=== PATIENT | male | born 1995 | race Two or more races ===

== ENCOUNTER 2017-03-04 17:01 | Emergency (ER) | payer BC, MEDICAID ==
[~2017-03-04] VITALS: Ht 185.4 cm; Wt 113.4 kg
[2017-03-04 17:54] LABS: Basophils # (auto) 0 uL; Basophils % (auto) 0.3 % (0.0-2.0); CONDITION Y; Eosinophils # (auto) 0.1 uL; Eosinophils % (auto) 1.3 % (0.0-7.0); Hematocrit 46.2 % (41.0-53.0); Hemoglobin 16.2 g/dL (13.5-17.5); Lymphocytes # (auto) 2.2 uL; Lymphocytes % (auto) 26.2 % (10.0-50.0); Mean Corpuscular Hemoglobin 31.7 pg (28.0-32.0); Mean Corpuscular Volume 90.4 fL (80.0-100.0); Mean Platelet Volume 8.9 fL (7.4-10.4); Monocytes # (auto) 0.4 uL; Monocytes % (auto) 5.1 % (0.0-12.0); Neutrophils # (auto) 5.7 uL; Neutrophils % (auto) 67.1 % (37.0-80.0); Platelet Count (auto) 314 10^3/uL (140-450); Red Cell Distribution Width 13.4 % (11.6-16.0); White Blood Cell 8.5 10^3/uL (4.4-10.8)
[2017-03-04 18:18] LABS: Albumin 4.2 g/dL (3.4-5.0); BUN/Creatinine Ratio 14.2; Bilirubin, Total 0.3 mg/dL (0.2-1.0); Calcium 9.3 mg/dL (8.5-10.1); Potassium 3.5 mmol/L (3.5-5.1); Total Protein 7.8 g/dL (6.4-8.2)
[2017-03-05 00:33] LABS: Urine RBC None Seen /hpf (0 - 3)
[2017-03-05 01:01] LABS: Urine Bilirubin Negative (Negative); Urine Blood Negative /uL (Negative); Urine Color Yellow (Yellow); Urine Glucose Normal (Normal); Urine Nitrite Negative (Negative); Urine Urobilinogen Normal (Negative); Urine pH 5.5 (5.0-8.0)
[2017-03-05 01:04] LABS: Urine Ketone 1+ (Negative)
[2017-03-05] MEDS ORDERED: HYDROcodone-ACET 10/325MG TAB PO ONE (02:30)
[2017-03-06] MEDS: hydrOXYzine PAMOATE 25 MG CAP PO SCH (11:30)
[2017-03-06] MEDS: CITALOPRAM HYDROBR 20 MG TAB PO SCH (11:30)
[2017-03-07 06:25] VITALS: BP 116/87
[2017-03-07] MEDS ORDERED: CITALOPRAM HYDROBR 20 MG TAB ONE (10:22)
[2017-03-07] MEDS ORDERED: hydrOXYzine PAMOATE 25 MG CAP ONE (10:22)
[2017-03-07] MEDS: CITALOPRAM HYDROBR 20 MG TAB PO SCH (10:34)
[2017-03-07] MEDS: hydrOXYzine PAMOATE 25 MG CAP PO SCH ×2 (10:34→22:21)
== END 2017-03-08 05:25 | disposition home or self-care (01) ==
LOC: ER 17:10
DX: F32.9 Major depressive disorder, single episode, unspecified (principal); F41.9 Anxiety disorder, unspecified; R55 Syncope and collapse; F23 Brief psychotic disorder; R42 Dizziness and giddiness
CPT/HCPCS: 36415; 80053; 80307; 81001; 85025; 93005

== ENCOUNTER 2021-06-25 14:33 | Emergency (ER) | payer BC, OTHER ==
[~2021-06-25] VITALS: Ht 185.4 cm; Wt 83.9 kg
[2021-06-25 16:54] VITALS: BP 157/95
== END 2021-06-25 17:05 | disposition home or self-care (01) ==
LOC: EDBD 14:33 → ER 14:33
DX: F41.9 Anxiety disorder, unspecified (principal); R10.9 Unspecified abdominal pain; V43.62XA Car passenger injured in collision with other type car in traffic accident, initial encounter; Y93.89 Activity, other specified; Y92.410 Unspecified street and highway as the place of occurrence of the external cause; Y99.8 Other external cause status
CPT/HCPCS: 74176